=== PATIENT | female | born 1955 | race Two or more races ===

== ENCOUNTER 2024-05-31 12:00 | Inpatient (IN) | payer OTHER ==
[~2024-05-31] VITALS: Ht 91.4 cm; Wt 73.5 kg
[2024-05-31] MEDS ORDERED: CRESTOR40 MG PO (13:25)
[2024-05-31] MEDS ORDERED: HUMALOG100 UNIT/2 SQ (13:26)
[2024-05-31] MEDS ORDERED: AMLODIPINE BESY10 MG PO (13:26)
[2024-05-31] MEDS ORDERED: IRBESARTAN-HCT1 EAC1 PO (13:28)
[2024-06-04] MEDS ORDERED: OxyCODONE HCL 5 MG TABLET (ROXICODONE) PO PRN (11:45)
[2024-06-04] MEDS ORDERED: FAMOTIDINE/PF 20 MG/2 ML VIAL IV PUSH SCH (11:45)
[2024-06-04] MEDS ORDERED: RINGERS SOLUTION,LACTATED 1,000 ML IV SCH (11:45)
[2024-06-04] MEDS ORDERED: CIPROFLOXACIN IN 5 % DEXTROSE 400 MG/200 ML PIGGYBAG IV SCH (11:45)
[2024-06-04] MEDS ORDERED: ONDANSETRON HCL 2 MG/ML VIAL IV PRN (11:45)
[2024-06-04] MEDS ORDERED: METRONIDAZOLE/SODIUM CHLORIDE 500 MG/100 ML PIGGYBACK IV SCH (11:45)
[2024-06-04] MEDS ORDERED: MORPHINE SULFATE 4 MG/ML CARTRIDGE IV PRN (11:45)
[2024-06-04] MEDS ORDERED: TAMSULOSIN HCL 0.4 MG CAP PO SCH (11:46)
[2024-06-04] MEDS ORDERED: LACTOBACILLUS ACIDOPHILUS 1 CAP CAP PO SCH (11:46)
[2024-06-04] MEDS ORDERED: ACETAMINOPHEN 500 MG GEL..CAP PO SCH (12:00)
[2024-06-04] MEDS ORDERED: MORPHINE SULFATE 4 MG/ML VIAL IV ONE ×2 (12:20→14:05)
[2024-06-04] MEDS ORDERED: LIDOCAINE HCL 1%/EPINEPHRINE 20ML VIAL IJ ONE (13:00)
[2024-06-04] MEDS ORDERED: CEFTRIAXONE SODIUM 2,000 MG VIAL IV ONE (13:00)
[2024-06-04] MEDS ORDERED: METRONIDAZOLE/SODIUM CHLORIDE 500 MG/100 ML PIGGYBACK IV ONE (13:00)
[2024-06-04] MEDS ORDERED: INSULIN REGULAR, HUMAN 1,000 UNIT/10 ML UNITS SUBCUTANEO ONE (13:00)
[2024-06-04] MEDS ORDERED: BUPIVACAINE HCL 30 ML VIAL IJ ONE (13:00)
[2024-06-04] MEDS ORDERED: HYOSCYAMINE SULFATE 0.125 MG TAB.SUBL SL SCH (13:00)
[2024-06-04] MEDS ORDERED: INSULIN REGULAR, HUMAN 1,000 UNIT/10 ML UNITS IV ONE (13:00)
[2024-06-04] MEDS ORDERED: DEXTROSE 50 % IN WATER 0.5 G/ML DISP.SYRIN IV PRN (14:15)
[2024-06-04] MEDS ORDERED: INSULIN LISPRO 1,000 UNIT/10 ML UNITS SUBCUTANEO PRN (14:15)
[2024-06-04] MEDS ORDERED: GABAPENTIN 300 MG CAPSULE PO SCH (17:00)
[2024-06-04 20:00] VITALS: BP 144/76; O2SAT 95
[2024-06-04] MEDS ORDERED: AMLODIPINE BESYLATE 10 MG TABLET PO SCH (21:00)
[2024-06-05 00:29] VITALS: BP 124/72; O2SAT 100
[2024-06-05 07:41] LABS: HEMOGLOBIN 12.6 g/dL (12.0-15.00); MEAN CELL VOLUME 86.2 fL (80.00-100.00); MEAN CORPUSCULAR HEMOGLOBIN 28.5 pg (27.00-32.0); MEAN CORPUSCULAR HGB CONC 33.1 g/dl (32.0-36.0); PLATELET COUNT 199 K/uL (150-450); RED BLOOD COUNT 4.41 M/uL (4.00-6.00); RED CELL DISTRIBUTION WIDTH 14.1 % (11.5-14.5)
[2024-06-05 07:52] LABS: CALCIUM 8.4 mg/dL (8.5-10.1); CREATININE SERUM 1.16 mg/dL (0.55-1.02); GFR 46.18; PHOSPHOROUS 3.8 mg/dL (2.5-4.9); POTASSIUM 4.38 mEq/L (3.5-5.1)
[2024-06-05 08:00] VITALS: BP 97/45; O2SAT 99
[2024-06-05] MEDS ORDERED: HYDROCHLOROTHIAZIDE 12.5 MG CAPSULE PO SCH (09:00)
[2024-06-05] MEDS ORDERED: IRBESARTAN 300 MG TABLET PO SCH (09:00)
[2024-06-05 10:03] LABS: MAGNESIUM 1.3 mg/dL (1.8-2.4)
[2024-06-05] MEDS ORDERED: INSULIN LISPRO 1,000 UNIT/10 ML UNITS SUBCUTANEO STA ×2 (10:05→16:03)
[2024-06-05] MEDS ORDERED: INSULIN NPH HUMAN ISOPHANE 1,000 UNITS/10 ML UNITS SUBCUTANEO STA (10:06)
[2024-06-05] MEDS ORDERED: INSULIN REGULAR, HUMAN 1,000 UNIT/10 ML UNITS IV STA ×2 (10:06→16:03)
[2024-06-05 13:00] VITALS: BP 92/44; O2SAT 95
[2024-06-05] MEDS ORDERED: MAGNESIUM SULFATE IN WATER 50 ML IV NR (15:45)
[2024-06-05 16:00] VITALS: BP 109/63; O2SAT 98
[2024-06-05] MEDS ORDERED: ENOXAPARIN SODIUM 40 MG/0.4 ML SYRINGE SUBCUTANEO SCH (17:00)
[2024-06-05] MEDS ORDERED: CRESTOR 40 MG PO SCH (17:00)
[2024-06-06 00:55] VITALS: BP 109/66; O2SAT 95
[2024-06-06] MEDS ORDERED: 0.9 % SODIUM CHLORIDE 1,000 ML IV SCH (03:15)
[2024-06-06 08:00] LABS: HEMATOCRIT 34.2 % (36.0-45.00); HEMOGLOBIN 11.3 g/dL (12.0-15.00); MEAN CELL VOLUME 84.6 fL (80.00-100.00); MEAN CORPUSCULAR HEMOGLOBIN 27.9 pg (27.00-32.0); PLATELET COUNT 189 K/uL (150-450); RED BLOOD COUNT 4.04 M/uL (4.00-6.00); RED CELL DISTRIBUTION WIDTH 13.9 % (11.5-14.5)
[2024-06-06 08:24] LABS: CALCIUM 8.1 mg/dL (8.5-10.1); CREATININE SERUM 1.01 mg/dL (0.55-1.02); GFR 54.19; MAGNESIUM 1.5 mg/dL (1.8-2.4); PHOSPHOROUS 3.2 mg/dL (2.5-4.9); POTASSIUM 3.62 mEq/L (3.5-5.1)
[2024-06-06] MEDS ORDERED: ENOXAPARIN SODIUM 40 MG/0.4 ML SYRINGE SUBCUTANEO SCH (09:00)
[2024-06-06] MEDS ORDERED: INSULIN NPH HUM/REG INSULIN HM 1,000 UNIT/10 ML UNITS SUBCUTANEO STA (11:21)
[2024-06-06] MEDS ORDERED: INSULIN LISPRO 1,000 UNIT/10 ML UNITS SUBCUTANEO STA (11:23)
[2024-06-06] MEDS ORDERED: SODIUM BICARBONATE 100 MEQ in SODIUM CHLORIDE 0.45 % 1,000 ML IV SCH ×3 (11:30→16:15)
[2024-06-06] MEDS ORDERED: MAGNESIUM SULFATE IN WATER 50 ML IV NR (12:00)
[2024-06-06] MEDS ORDERED: DIPHENHYDRAMINE HCL 50 MG/ML VIAL 1ML IV STA (12:42)
[2024-06-06 14:41] VITALS: BP 127/65; O2SAT 94
[2024-06-06 16:00] VITALS: BP 102/64; O2SAT 97
[2024-06-06] MEDS ORDERED: INSULIN LISPRO 1,000 UNIT/10 ML UNITS SUBCUTANEO SCH (17:00)
[2024-06-06] MEDS ORDERED: INSULIN NPH HUMAN ISOPHANE 1,000 UNITS/10 ML UNITS SUBCUTANEO SCH (21:00)
[2024-06-07 00:18] VITALS: BP 110/64; O2SAT 96
[2024-06-07 08:00] VITALS: BP 123/64; O2SAT 96
[2024-06-07] MEDS ORDERED: INSULIN LISPRO 1,000 UNIT/10 ML UNITS SUBCUTANEO SCH (08:00)
[2024-06-07 08:29] LABS: CALCIUM 8.3 mg/dL (8.5-10.1); CREATININE SERUM 0.93 mg/dL (0.55-1.02); GFR 59.6; MAGNESIUM 2.2 mg/dL (1.8-2.4); POTASSIUM 3.28 mEq/L (3.5-5.1)
[2024-06-07] MEDS ORDERED: INSULIN GLARGINE,HUM.REC.ANLOG 1,000 UNITS/10 ML UNITS SUBCUTANEO SCH (09:00)
[2024-06-07 09:06] LABS: PHOSPHOROUS 1.1 mg/dL (2.5-4.9)
[2024-06-07 10:23] LABS: HEMOGLOBIN 12.1 g/dL (12.0-15.00); MEAN CELL VOLUME 84.6 fL (80.00-100.00); MEAN CORPUSCULAR HEMOGLOBIN 28.3 pg (27.00-32.0); MEAN CORPUSCULAR HGB CONC 33.5 g/dl (32.0-36.0); PLATELET COUNT 215 K/uL (150-450); RED BLOOD COUNT 4.26 M/uL (4.00-6.00); RED CELL DISTRIBUTION WIDTH 13.7 % (11.5-14.5)
[2024-06-07] MEDS ORDERED: SODIUM CHLORIDE 0.45 % 1,000 ML IV SCH (10:45)
[2024-06-07] MEDS ORDERED: POTASSIUM PHOS,M-BASIC-D-BASIC 15 MM in 0.9 % SODIUM CHLORIDE 250 ML IV NR (12:00)
[2024-06-07 17:06] VITALS: BP 117/72; O2SAT 100
[2024-06-08] MEDS ORDERED: PIPERACILLIN/TAZOBACTAM SODIUM 3.375 GM VIAL IV SCH
[2024-06-08 00:15] VITALS: BP 108/70; O2SAT 97
[2024-06-08 08:00] VITALS: BP 121/72; O2SAT 96
[2024-06-08] MEDS ORDERED: NEURONTIN300 MG PO (12:26)
[2024-06-08] MEDS ORDERED: TYLENOL ARTHRI650 MG PO (12:26)
[2024-06-08] MEDS ORDERED: FAMOtidine 20 MG TABLET PO SCH (21:00)
== END 2024-06-08 14:59 | disposition home or self-care (01) | DRG 331 ==
LOC: O/R 06-04 05:30 → SURG 06-04 12:00 → SURH 06-04 13:24
PROVIDERS: Internal Medicine Geriatric Medicine; ADMIT Surgery; ATTEND Surgery
PROC: 07BB4ZZ Excision of Mesenteric Lymphatic, Percutaneous Endoscopic Approach (ICD-10-PCS; 2024-06-04)
PROC: 0DTF4ZZ Resection of Right Large Intestine, Percutaneous Endoscopic Approach (ICD-10-PCS; principal; 2024-06-04 13:00)
DX: D37.4 Neoplasm of uncertain behavior of colon (principal); R59.0 Localized enlarged lymph nodes; E11.65 Type 2 diabetes mellitus with hyperglycemia; Z79.4 Long term (current) use of insulin; I10 Essential (primary) hypertension